=== PATIENT | male | born 1985 | race Caucasian/White ===

== ENCOUNTER 2021-01-19 17:53 | Emergency (ER) | payer SELFPAY ==
[~2021-01-19] VITALS: Ht 188 cm; Wt 82.0 kg
[2021-01-19] MEDS ORDERED: ACETAMINOPHEN 325MG TABLET PO ONE (18:15)
[2021-01-19 21:01] VITALS: BP 134/80
== END 2021-01-19 21:02 | disposition home or self-care (01) ==
LOC: ER 17:53
DX: M77.8 Other enthesopathies, not elsewhere classified (principal); M25.551 Pain in right hip
CPT/HCPCS: 72170; 99283